=== PATIENT | female | born 1985 | race Hispanic/Latino ===

== ENCOUNTER 2017-04-14 01:03 | Emergency (ER) | payer OTHER ==
[2017-04-14 01:23] VITALS: BP 133/88; PULSE 94; RESP 16; TEMP 97.8; O2SAT 97
--- NOTE | 2017-04-14 02:32 | ED PDOC ---
HPI: Psych/Substance Abuse Time Seen by Provider: 04/14/17 01:21 Chief Complaint (Nursing): Alcohol Ingestion Chief Complaint (Provider): etoh History Per: Patient, EMS Additional Complaint(s): 31 y/o female brought in by EMS for acute alcohol intoxication. Patient awake, alert; admits to drinking tonight. Denies acute medical or psychiatric complaints. Past Medical History Reviewed: Historical Data, Nursing Documentation, Vital Signs Vital Signs: Last Vital Signs Temp 97.8 F 04/14/17 01:20 Pulse 94 H 04/14/17 01:20 Resp 16 04/14/17 01:20 BP 133/88 04/14/17 01:20 Pulse Ox 97 04/14/17 01:20 - Medical History PMH: No Chronic Diseases - Surgical History Surgical History: Tonsillectomy - Family History Family History: States: No Known Family Hx - Allergies Allergies/Adverse Reactions: Allergies Allergy/AdvReac Type Severity Reaction Status Date / Time No Known Allergies Allergy Verified 04/14/17 01:23 Review of Systems ROS Statement: Except As Marked, All Systems Reviewed And Found Negative Physical Exam - Reviewed Nursing Documentation Reviewed: Yes Vital Signs Reviewed: Yes - Physical Exam Appears: Positive for: Well, Non-toxic, No Acute Distress (intoxicated) Head Exam: Positive for: ATRAUMATIC, NORMAL INSPECTION, NORMOCEPHALIC Skin: Positive for: Normal Color Eye Exam: Positive for: Normal appearance ENT: Positive for: Normal ENT Inspection Cardiovascular/Chest: Positive for: Regular Rate, Rhythm Respiratory: Positive for: Normal Breath Sounds Gastrointestinal/Abdominal: Positive for: Normal Exam Back: Positive for: Normal Inspection Extremity: Positive for: Normal ROM Neurologic/Psych: Positive for: Alert, Oriented - ECG O2 Sat by Pulse Oximetry: 97 - Progress ED Course And Treament: 2:30 Patient friend at bedside to take patient home. Patient ambulating steady gait Stable for discharge. Disposition - Clinical Impression Clinical Impression: Alcohol intoxication - Patient ED Disposition Is Patient to be Admitted: No Counseled Patient/Family Regarding: Diagnosis, Need For Followup - Disposition Disposition: Routine/Home Disposition Time: 02:31 Condition: STABLE Instructions: Alcohol Intoxication (ED)
== END 2017-04-14 02:44 | disposition home or self-care (01) ==
LOC: H.ER 01:03
DX: F10.129 Alcohol abuse with intoxication, unspecified (principal)